=== PATIENT | female | born 1945 | race Caucasian/White ===

== ENCOUNTER 2021-03-23 12:22 | Inpatient (IN) | payer MEDICARE, MEDICAID ==
[~2021-03-23] VITALS: Ht 160 cm; Wt 65.3 kg
[2021-03-23 14:06] LABS: BASOPHILS % 0.6 % (0.0-2.0); EOSINOPHILS % 1.1 % (0.0-5.0); HEMATOCRIT. 36.6 % (36.0-48.0); HEMOGLOBIN. 12.8 g/dL (12.0-16.0); LYMPHOCYTES % 11.2 % (20.0-50.0); MEAN CORPUSCULAR HEMOGLOBIN 32.1 pg (28.0-32.0); MEAN CORPUSCULAR VOLUME 91.7 fL (81.0-99.0); MEAN PLATELET VOLUME 8.9 fl (7.4-10.4); MONOCYTES % 7.7 % (2.0-8.0); NEUTROPHILS % 79.4 % (40.0-76.0); PLATELET 214 x1000/uL (130-400)
[2021-03-23 14:15] LABS: INR 1.2; PROTHROMBIN TIME 12.4 sec (9.6-11.0)
[2021-03-23 14:43] LABS: CHLORIDE 98 mEq/L (98-107)
[2021-03-23] MEDS ORDERED: ASPIRIN 81MG TABLET PO ONE (15:45)
[2021-03-23] MEDS ORDERED: FUROSEMIDE 40MG/4ML VIAL IV ONE (15:45)
[2021-03-23 16:41] LABS: CLARITY URINE CLEAR (CLEAR); COLOR URINE YELLOW (YELLOW); KETONES URINE NEGATIVE (NEGATIVE); LEUKOCYTE ESTERASE URINE NEGATIVE (NEGATIVE); NITRITE URINE NEGATIVE (NEGATIVE); OCCULT BLOOD URINE NEGATIVE (NEGATIVE); PROTEIN URINE TRACE (NEGATIVE); SPECIFIC GRAVITY URINE 1.007 (1.005-1.030); UROBILINOGEN URINE 0.2 E.U./dL (0.2-1.0)
[2021-03-23 21:15] VITALS: BP 147/78
[2021-03-23 21:55] VITALS: BP 147/78
[2021-03-23] MEDS ORDERED: DEXTROSE 50% WATER 50ML SYRINGE IV PRN (23:00)
[2021-03-23] MEDS ORDERED: CLONIDINE 0.1MG TABLET PO PRN (23:00)
[2021-03-23] MEDS ORDERED: ONDANSETRON HCL 4MG/2ML INJ IV PRN (23:00)
[2021-03-23] MEDS ORDERED: HYDR-4135 PO (23:08)
[2021-03-23] MEDS ORDERED: METO-539 PO (23:08)
[2021-03-23] MEDS ORDERED: LISI20TA31 PO (23:08)
[2021-03-23] MEDS ORDERED: APIX5TAB PO (23:08)
[2021-03-24] VITALS: BP 145/70
[2021-03-24] MEDS ORDERED: VANCOMYCIN 1 G PREMIX 200 ML IV NR (01:00)
[2021-03-24] MEDS: PIPERACILLIN/TAZOBACTAM 3.375G in DEXT 5% WATER 50ML IV SCH ×2 (01:07→10:40)
[2021-03-24 04:00] VITALS: BP 141/71
[2021-03-24] MEDS ORDERED: PIPERACILLIN/TAZOBACTAM 3.375 G/VIAL IV SCH (06:00)
[2021-03-24 06:07] LABS: CHLORIDE 98 mEq/L (98-107)
[2021-03-24 06:13] LABS: BASOPHILS % 0.9 % (0.0-2.0); EOSINOPHILS % 2.3 % (0.0-5.0); HEMATOCRIT. 34.8 % (36.0-48.0); HEMOGLOBIN. 12.1 g/dL (12.0-16.0); LYMPHOCYTES % 17.1 % (20.0-50.0); MEAN CORPUSCULAR VOLUME 92.1 fL (81.0-99.0); MEAN PLATELET VOLUME 9.4 fl (7.4-10.4); MONOCYTES % 11.9 % (2.0-8.0); NEUTROPHILS % 67.8 % (40.0-76.0); PLATELET 188 x1000/uL (130-400); RED BLOOD CELL COUNT 3.78 mill/uL (4.2-5.4); RED CELL DISTRIBUTION WIDTH 13.7 % (11.6-14.6)
[2021-03-24 06:18] LABS: HDL CHOLESTEROL 61 mg/dL (40-59)
[2021-03-24 06:28] LABS: LDL CHOLESTEROL 40 mg/dL (5-100)
[2021-03-24] MEDS: BLOOD SUGAR DIAGNOSTIC STRIP TEST SCH ×4 (06:32→21:14)
[2021-03-24] MEDS: INSULIN LISPRO 100 UNITS/ML SUBCUT SCH ×4 (07:50→21:00)
[2021-03-24 08:00] VITALS: BP 114/71
[2021-03-24] MEDS: METOPROLOL TARTRATE 50MG TABLET PO SCH ×2 (10:38→17:35)
[2021-03-24] MEDS: APIXABAN 5 MG TABLET PO SCH ×2 (10:38→17:34)
[2021-03-24] MEDS: ACETAMINOPHEN 325MG TABLET PO PRN ×2 (10:39→21:16)
[2021-03-24] MEDS: LISINOPRIL 20MG TABLET PO SCH ×2 (10:39→17:36)
[2021-03-24] MEDS: HYDRALAZINE HCL 50MG TABLET PO SCH ×3 (10:39→17:34)
[2021-03-24] MEDS: FUROSEMIDE 40MG/4ML VIAL IVP SCH ×2 (10:40→17:34)
[2021-03-24 12:00] VITALS: BP 100/59
[2021-03-24 16:00] VITALS: BP 120/60
[2021-03-24 20:00] VITALS: BP 98/51
[2021-03-24] MEDS: ATORVASTATIN CALCIUM 40MG TABLET PO SCH (21:16)
[2021-03-25] VITALS: BP 141/77
[2021-03-25] MEDS ORDERED: VANCOMYCIN 1 G PREMIX 200 ML IV SCH (02:00)
[2021-03-25 04:00] VITALS: BP 113/50
[2021-03-25] MEDS: BLOOD SUGAR DIAGNOSTIC STRIP TEST SCH ×4 (06:25→20:22)
[2021-03-25] MEDS: INSULIN LISPRO 100 UNITS/ML SUBCUT SCH ×4 (06:56→20:22)
[2021-03-25 08:05] VITALS: BP 138/69
[2021-03-25] MEDS: METOPROLOL TARTRATE 50MG TABLET PO SCH ×2 (08:57→17:22)
[2021-03-25] MEDS: APIXABAN 5 MG TABLET PO SCH (08:57)
[2021-03-25] MEDS: HYDRALAZINE HCL 50MG TABLET PO SCH ×3 (08:57→17:21)
[2021-03-25] MEDS: FUROSEMIDE 40MG/4ML VIAL IVP SCH ×2 (08:57→17:21)
[2021-03-25] MEDS: LISINOPRIL 20MG TABLET PO SCH ×2 (08:57→17:21)
[2021-03-25 12:00] VITALS: BP 118/52
[2021-03-25] MEDS ORDERED: SPIRONOLACTONE 25MG TABLET PO SCH (15:30)
[2021-03-25 17:00] VITALS: BP 133/53
[2021-03-25 20:00] VITALS: BP 111/60
[2021-03-25] MEDS: ATORVASTATIN CALCIUM 40MG TABLET PO SCH (20:22)
[2021-03-25] MEDS: SPIRONOLACTONE 25MG TABLET PO SCH (20:22)
[2021-03-26] VITALS: BP 116/53
[2021-03-26 04:00] VITALS: BP 124/63
[2021-03-26] MEDS: BLOOD SUGAR DIAGNOSTIC STRIP TEST SCH ×4 (06:52→21:15)
[2021-03-26] MEDS: INSULIN LISPRO 100 UNITS/ML SUBCUT SCH ×4 (07:40→21:19)
[2021-03-26 08:03] VITALS: BP 141/70
[2021-03-26] MEDS: FUROSEMIDE 40MG/4ML VIAL IVP SCH (09:33)
[2021-03-26] MEDS: HYDRALAZINE HCL 50MG TABLET PO SCH ×3 (09:33→16:48)
[2021-03-26] MEDS: SPIRONOLACTONE 25MG TABLET PO SCH (09:34)
[2021-03-26] MEDS: LISINOPRIL 20MG TABLET PO SCH ×2 (09:34→16:47)
[2021-03-26] MEDS: METOPROLOL TARTRATE 50MG TABLET PO SCH ×2 (09:35→21:14)
[2021-03-26 12:38] VITALS: BP 130/63
[2021-03-26 16:04] VITALS: BP 142/62
[2021-03-26] MEDS: FUROSEMIDE 40MG TABLET PO SCH (17:35)
[2021-03-26 20:00] VITALS: BP 129/46
[2021-03-26] MEDS: GUAIFENESIN 600MG ER TABLET PO SCH (21:14)
[2021-03-26] MEDS: ATORVASTATIN CALCIUM 40MG TABLET PO SCH (21:15)
[2021-03-27] VITALS: BP 111/53
[2021-03-27 04:00] VITALS: BP 131/65
[2021-03-27] MEDS: FUROSEMIDE 40MG TABLET PO SCH (06:00)
[2021-03-27] MEDS: BLOOD SUGAR DIAGNOSTIC STRIP TEST SCH ×4 (07:20→21:30)
[2021-03-27] MEDS: INSULIN LISPRO 100 UNITS/ML SUBCUT SCH ×4 (07:22→21:00)
[2021-03-27] MEDS ORDERED: LIDOCAINE HCL 2% JELLY 5ML ONE (07:41)
[2021-03-27] MEDS ORDERED: TETRACAINE/BENZOCAINE/BUTAMBEN 20 GM SPRAY MM ONE (07:41)
[2021-03-27 07:43] VITALS: BP 156/75
[2021-03-27] MEDS ORDERED: FENTANYL CITRATE/PF 50MCG/ML 2ML VIAL ONE (08:10)
[2021-03-27] MEDS ORDERED: MIDAZOLAM HCL 2 MG/2 ML VIAL ONE (08:10)
[2021-03-27] MEDS: HYDRALAZINE HCL 50MG TABLET PO SCH ×3 (09:00→17:33)
[2021-03-27] MEDS: LISINOPRIL 20MG TABLET PO SCH ×2 (09:00→17:33)
[2021-03-27] MEDS: GUAIFENESIN 600MG ER TABLET PO SCH ×2 (09:00→21:31)
[2021-03-27] MEDS: SPIRONOLACTONE 25MG TABLET PO SCH (09:00)
[2021-03-27] MEDS: METOPROLOL TARTRATE 50MG TABLET PO SCH ×2 (09:00→21:32)
[2021-03-27 09:56] LABS: HEMATOCRIT. 36.5 % (36.0-48.0); HEMOGLOBIN. 12.8 g/dL (12.0-16.0); MEAN CORPUSCULAR HEMOGLOBIN 31.7 pg (28.0-32.0); MEAN CORPUSCULAR VOLUME 90.5 fL (81.0-99.0); PLATELET 229 x1000/uL (130-400); RED BLOOD CELL COUNT 4.03 mill/uL (4.2-5.4); RED CELL DISTRIBUTION WIDTH 13.5 % (11.6-14.6)
[2021-03-27] MEDS ORDERED: ENOXAPARIN 80MG/0.8ML SYR SUBCUT SCH (10:00)
[2021-03-27 10:25] VITALS: BP 119/73
[2021-03-27 12:17] LABS: INR 1.2; PROTHROMBIN TIME 12.4 sec (9.6-11.0)
[2021-03-27] MEDS: ENOXAPARIN 80MG/0.8ML SYR SUBCUT SCH (13:48)
[2021-03-27 16:00] VITALS: BP 103/54
[2021-03-27] MEDS ORDERED: WARFARIN SODIUM 4MG TABLET PO SCH (18:00)
[2021-03-27 19:29] LABS: PLATELET ESTIMATE NORMAL
[2021-03-27 20:00] VITALS: BP 113/64
[2021-03-27] MEDS: ATORVASTATIN CALCIUM 40MG TABLET PO SCH (21:31)
[2021-03-28] VITALS: BP 116/63
[2021-03-28] MEDS: ENOXAPARIN 80MG/0.8ML SYR SUBCUT SCH ×2 (00:46→13:00)
[2021-03-28 04:00] VITALS: BP 108/66
[2021-03-28 06:51] LABS: INR 1.3; PROTHROMBIN TIME 13.5 sec (9.6-11.0)
[2021-03-28] MEDS: BLOOD SUGAR DIAGNOSTIC STRIP TEST SCH ×4 (07:31→21:04)
[2021-03-28] MEDS: INSULIN LISPRO 100 UNITS/ML SUBCUT SCH ×4 (07:35→21:00)
[2021-03-28 07:52] VITALS: BP 111/71
[2021-03-28] MEDS: HYDRALAZINE HCL 50MG TABLET PO SCH ×3 (09:00→17:32)
[2021-03-28] MEDS: FUROSEMIDE 40MG TABLET PO SCH (09:16)
[2021-03-28] MEDS: SPIRONOLACTONE 25MG TABLET PO SCH (09:16)
[2021-03-28] MEDS: GUAIFENESIN 600MG ER TABLET PO SCH ×2 (09:16→21:05)
[2021-03-28] MEDS: LISINOPRIL 20MG TABLET PO SCH ×2 (09:17→17:32)
[2021-03-28] MEDS: METOPROLOL TARTRATE 50MG TABLET PO SCH ×2 (09:17→21:00)
[2021-03-28 11:35] VITALS: BP 122/61
[2021-03-28 15:42] VITALS: BP 113/60
[2021-03-28] MEDS ORDERED: LACTULOSE 20G/30ML UDC PO NR (16:00)
[2021-03-28] MEDS: ACETAMINOPHEN 325MG TABLET PO PRN ×2 (17:31→23:51)
[2021-03-28] MEDS ORDERED: BISACODYL 10MG SUPP PR NR (18:00)
[2021-03-28] MEDS ORDERED: WARFARIN SODIUM 7.5MG TABLET PO NR (18:00)
[2021-03-28 20:00] VITALS: BP 102/45
[2021-03-28] MEDS: ATORVASTATIN CALCIUM 40MG TABLET PO SCH (21:04)
[2021-03-29] VITALS: BP 123/63
[2021-03-29] MEDS: ENOXAPARIN 80MG/0.8ML SYR SUBCUT SCH (01:00)
[2021-03-29 04:00] VITALS: BP 100/62
[2021-03-29 06:55] LABS: INR 2.1; PROTHROMBIN TIME 20.9 sec (9.6-11.0)
[2021-03-29] MEDS: INSULIN LISPRO 100 UNITS/ML SUBCUT SCH ×2 (07:50→12:12)
[2021-03-29] MEDS: BLOOD SUGAR DIAGNOSTIC STRIP TEST SCH ×2 (07:52→12:12)
[2021-03-29 08:03] VITALS: BP 137/66
[2021-03-29] MEDS: HYDRALAZINE HCL 50MG TABLET PO SCH ×2 (08:57→14:07)
[2021-03-29] MEDS: GUAIFENESIN 600MG ER TABLET PO SCH (08:57)
[2021-03-29] MEDS: METOPROLOL TARTRATE 50MG TABLET PO SCH (08:57)
[2021-03-29] MEDS: FUROSEMIDE 40MG TABLET PO SCH (08:57)
[2021-03-29] MEDS: SPIRONOLACTONE 25MG TABLET PO SCH (08:57)
[2021-03-29] MEDS: LISINOPRIL 20MG TABLET PO SCH (08:58)
[2021-03-29 12:09] VITALS: BP 122/63
[2021-03-29 13:22] VITALS: BP 122/63
[2021-03-29] MEDS ORDERED: WARFARIN SODIUM 5MG TABLET PO SCH (18:00)
== END 2021-03-29 14:38 | disposition home health service (06) | DRG 291 ==
LOC: ER 12:22 → EDBEDREQTM 13:30 → EDBEDREQ 18:18 → EDBEDREQTM 18:18 → ENRESERV 19:59 → 6WST 21:24
PROVIDERS: ADMIT Internal Medicine; ATTEND Internal Medicine
DX: I11.0 Hypertensive heart disease with heart failure (principal); J96.00 Acute respiratory failure, unspecified whether with hypoxia or hypercapnia; E87.1 Hypo-osmolality and hyponatremia; I48.11 Longstanding persistent atrial fibrillation; E11.52 Type 2 diabetes mellitus with diabetic peripheral angiopathy with gangrene; I31.3 Pericardial effusion (noninflammatory); L97.509 Non-pressure chronic ulcer of other part of unspecified foot with unspecified severity; E11.621 Type 2 diabetes mellitus with foot ulcer; E78.5 Hyperlipidemia, unspecified; I27.20 Pulmonary hypertension, unspecified; I51.3 Intracardiac thrombosis, not elsewhere classified; I50.41 Acute combined systolic (congestive) and diastolic (congestive) heart failure; I34.0 Nonrheumatic mitral (valve) insufficiency; Z20.822 Contact with and (suspected) exposure to COVID-19; K59.00 Constipation, unspecified; Z91.19 Patient's noncompliance with other medical treatment and regimen; Z87.891 Personal history of nicotine dependence; I25.2 Old myocardial infarction; Z79.01 Long term (current) use of anticoagulants; Z79.899 Other long term (current) drug therapy
CPT/HCPCS: 36415; 71045; 80048; 80053; 80061; 81003; 82962; 83036; 83880; 84484; 85025; 86038; 87426; 93005; 93306; 93312; 93923; 97116; 97162; 97166; 97530; 97535; 99291; J1650; J1815; J1940; J2250; J2405; J2543; J3010; J3370; J7040; J7060